=== PATIENT | female | born 1985 | race Caucasian/White ===

== ENCOUNTER 2024-01-28 12:55 | Inpatient (IN) ==
--- NOTE | 2024-01-28 13:19 | ED Triage Note ---
Date of Service January 28, 2024 Provider in Triage Author: Malia Bills History of Present Illness This patient was briefly evaluated while in triage. An abbreviated physical exam was performed. This patient is a 38-year-old Female who presents to the ED for evaluation of abdominal pain. She states that she was feeling some indigestion last night and then developed pain on the right side today. She has had vomiting. Denies fevers or urinary symptoms. Physical Exam GENERAL: Non-toxic and in no acute distress. HEENT: Pupils equal. No obvious scleral icterus. HEART: Regular rate and rhythm. LUNGS: Clear to auscultation. No accessory muscle use. ABDOMEN: Tenderness RUQ and RLQ. NEURO: Alert and oriented. Initial orders for labs and / or imaging were placed and patient was placed in the waiting area until a bed is available. Please see further documentation for the full ED course.
[2024-01-28] MEDS: SODIUM CHLORIDE 0.9% 1,000 ML IV ONE ×2 (13:49→15:44)
[2024-01-28] MEDS: ONDANSETRON INJ 2 MG/ML 2 ML VIAL IV STA ×2 (13:49→15:43)
[2024-01-28] MEDS: FAMOTIDINE 20MG IV PUSH 20 MG/5 ML SYR IV STA (13:49)
[2024-01-28 13:59] LABS: Basophils # (auto) 0.06 K/uL (0.00-0.20); Basophils % (auto) 0.3 %; Eosinophils # (auto) 0.02 K/uL (0.00-0.50); Eosinophils % (auto) 0.1 %; Hematocrit (blood only) 49.5 % (37.0-47.0); Hemoglobin 17.5 g/dl (12.0-16.0); Immature Granulocytes # (auto) 0.07 K/uL (0.01-0.20); Immature Granulocytes % (auto) 0.4 %; Lymphocytes # (auto) 1.27 K/uL (1.20-3.40); Lymphocytes % (auto) 6.5 %; Mean Corpuscular Hemoglobin 33.5 pg (25.0-34.0); Mean Corpuscular Hgb Conc 35.4 g/dL (32.0-36.0); Mean Corpuscular Volume 94.6 fL (80.0-100.0); Mean Platelet Volume 10.3 fL (9.4-12.4); Monocytes # (auto) 1.28 K/uL (0.11-0.59); Monocytes % (auto) 6.6 %; Neutrophils # (auto) 16.77 K/uL (1.40-6.50); Neutrophils % (auto) 86.1 %; Platelet Count 284 K/uL (130-400); RDW Coefficient of Variation 13.1 % (11.5-14.5); RDW Standard Deviation 45.5 fL (36.4-46.3); Red Blood Count 5.23 M/uL (4.20-5.40); White Blood Count 19.47 K/ul (4.8-10.8)
[2024-01-28 14:11] LABS: Pregnancy Test, Serum Negative (Negative)
[2024-01-28 14:28] LABS: Albumin Globulin Ratio 1.5 (0.9-2); Albumin Level 4.8 gm/dl (3.4-5.0); Bilirubin,Total 0.6 mg/dl (0.2-1.0); Creatinine Clr Calc Pharmacy 112.2 ml/min; Est GFR (African American) 113.4 ml/min; Est GFR (Non-African American) 97.8 ml/min; Globulin 3.1 gm/dl (2.5-4.0); Potassium 3.4 mmol/L (3.5-5.1); Total Protein 7.9 gm/dl (6.0-8.3)
--- NOTE | 2024-01-28 14:31 | Emergency Department Note ---
ED Provider Note History of Present Illness Chief Complaint: Abdominal Pain Stated Complaint: INDIGESTION, NOW PAIN ON RIGHT SIDE, VOMITING Time Seen by Provider: 01/28/24 14:30 Source: patient Mode of arrival: ambulatory Limitations: no limitations This patient is a 38-year-old female who presents to the emergency department for evaluation of abdominal pain. Patient reports that last night she developed some "indigestion." She states that today, she has developed abdominal pain which is primarily on the right side. Pain is worse with any movement. She has had vomiting as well. Denies changes in bowel movements or urinary symptoms. She denies any history of similar symptoms. She has not noticed any fevers at home. Home Medications Medication Instructions Recorded Confirmed Type desvenlafaxine succinate 100 mg 100 mg PO DAILY 01/28/24 01/28/24 History tablet,extended release 24 hr lorazepam 0.5 mg tablet 0.5 mg PO DAILY PRN Anxiety 01/28/24 01/28/24 History Allergies Allergy/AdvReac Type Severity Reaction Status Date / Time No Known Allergies Allergy Unverified 01/28/24 16:29 Past Med/Surg History Problem List (Updated 01/28/24 @ 18:29 by Malia Bills PA-C) Appendicitis with perforation (Acute) Acute appendicitis Macromastia Anxiety Surgical History Tubal ligation status Social History Smoking Status: Current every day smoker Tobacco Type: Cigarettes Second Hand Exposure: Yes; Tobacco Cessation Education Requested by Patient: No Hx Alcohol Use: Yes Alcohol type: beer Alcohol Intake Frequency Comment: Occasional Hx Substance Use: No Preferred Language: Hebrew Communication Ability: Effective Manager Of Maintenance Required: No Beliefs That Will Affect Care: None Current Living Situation: Spouse Current Living Situation Comment: and children Other Information That Helps Us Care for You: No Feels Safe at Home: Yes Safety Concerns: Feels Safe At This Time Physical Exam Vital Signs Vital Signs - 24 hr 01/28/24 13:18 01/28/24 15:41 01/28/24 15:41 Temperature 36.9 C Temperature Source Temporal Artery Scan Pulse Rate 120 H 99 H Pulse Rate [Apical] Pulse Rate [Right Finger] 98 H Pulse Rhythm Regular Pulse Rhythm [Apical] Pulse Rhythm [Right Finger] Regular Pulse Strength [Apical] Pulse Strength [Right Finger] Normal Respiratory Rate 16 23 17 Respiratory Effort / Characteristics Non-Labored Non-Labored Respiratory Depth Normal Normal Respiratory Pattern Regular Blood Pressure 145/80 H Blood Pressure [Left Arm] 118/87 Blood Pressure Mean 101 Blood Pressure Mean [Left Arm] 97 Blood Pressure Position [Left Arm] Lying Pulse Oximetry 96 98 98 Oxygen Delivery Method Room Air Room Air Room Air Oxygen Flow Rate Sepsis Recent Fever Within 48 Hours No Sepsis New/Unexplained Change in Mental Status N/A Sepsis Action Taken by Nursing No Action Required 01/28/24 15:56 01/28/24 16:16 01/28/24 16:33 Temperature Temperature Source Pulse Rate 109 H Pulse Rate [Apical] Pulse Rate [Right Finger] 104 H 109 H Pulse Rhythm Pulse Rhythm [Apical] Pulse Rhythm [Right Finger] Regular Regular Pulse Strength [Apical] Pulse Strength [Right Finger] Normal Normal Respiratory Rate 30 H 25 H Respiratory Effort / Characteristics Non-Labored Non-Labored Respiratory Depth Normal Normal Respiratory Pattern Regular Regular Blood Pressure Blood Pressure [Left Arm] 145/92 H 153/99 H Blood Pressure Mean Blood Pressure Mean [Left Arm] 109 117 Blood Pressure Position [Left Arm] Lying Lying Pulse Oximetry 95 97 Oxygen Delivery Method Room Air Room Air Oxygen Flow Rate Sepsis Recent Fever Within 48 Hours Sepsis New/Unexplained Change in Mental Status Sepsis Action Taken by Nursing 01/28/24 16:40 01/28/24 18:13 Temperature 37.9 C H 36.9 C Temperature Source Oral Temporal Artery Scan Pulse Rate Pulse Rate [Apical] 130 H Pulse Rate [Right Finger] 107 H Pulse Rhythm Pulse Rhythm [Apical] Regular Pulse Rhythm [Right Finger] Pulse Strength [Apical] Normal Pulse Strength [Right Finger] Respiratory Rate 20 18 Respiratory Effort / Characteristics Non-Labored Spontaneous Non-Labored Spontaneous Respiratory Depth Normal Normal Respiratory Pattern Regular Regular Blood Pressure Blood Pressure [Left Arm] 130/97 146/93 H Blood Pressure Mean Blood Pressure Mean [Left Arm] 108 110 Blood Pressure Position [Left Arm] Semi-fowlers Semi-fowlers Pulse Oximetry 96 95 Oxygen Delivery Method Room Air Oxymask Oxygen Flow Rate 10 Sepsis Recent Fever Within 48 Hours Sepsis New/Unexplained Change in Mental Status Sepsis Action Taken by Nursing VITALS: Vitals are noted on the nurse's note and reviewed by myself. GENERAL: This is a 38-year-old female, in no acute distress, well-developed well-nourished. SKIN: The skin was without rashes. EYES: Pupils equal round and reactive to light and accommodation. MOUTH: Mucous membranes moist. HEART: Regular rate and rhythm without murmurs gallops or rubs. LUNGS: Clear to auscultation bilaterally without wheezes, rales or rhonchi. ABDOMEN: Positive bowel sounds x 4. Soft, tender in the right lower quadrant with guarding. NEURO: Patient was alert and oriented to person place and time. Course Administered Medications Lactated Ringer's (Lr) 1,000 mls @ 125 mls/hr IV .Q8H AIDAN Stop: 02/27/24 19:27 Last Admin: 01/28/24 19:54 Dose: 125 mls/hr Documented By: KSC Discontinued Medications Acetaminophen (Acetaminophen 1000 Mg/100 Ml Iv) Confirm Administered Dose 1,000 mg IV .STK-MED ONE Stop: 01/28/24 18:24 Last Admin: 01/28/24 18:25 Dose: Not Given Documented By: WT Bupivacaine HCl/Epinephrine Bitart (Bupivacaine/Epinephrine 0.5% Mpf 1:200,000 30 Ml Vial) Confirm Administered Dose 30 ml .ROUTE .STK-MED ONE Stop: 01/28/24 16:33 Last Admin: 01/28/24 19:29 Dose: Not Given Documented By: KSC Fentanyl Citrate (Fentanyl Citrate Pf 100 Mcg/2 Ml Vial) 25 mcg IV Q5M PRN PRN Reason: PACU Use Only-Pain Stop: 01/29/24 00:31 Last Admin: 01/28/24 18:39 Dose: 25 mcg Documented By: Admin: 01/28/24 18:34 Dose: 25 mcg Documented By: Admin: 01/28/24 18:29 Dose: 25 mcg Documented By: Admin: 01/28/24 18:24 Dose: 25 mcg Documented By: WT Sodium Chloride (Nss) 1,000 mls @ 999 mls/hr IV .Q1H1M ONE Stop: 01/28/24 14:20 Last Infusion: 01/28/24 19:50 Dose: Infused Documented By: Admin: 01/28/24 13:49 Dose: 999 mls/hr Documented By: ELISABETH Famotidine (Pepcid 20mg Iv Push) 20 mg in 5 mls @ 2.5 mls/min IV NOW STA Stop: 01/28/24 13:21 Last Admin: 01/28/24 13:49 Dose: 2.5 mls/min Documented By: ELISABETH Piperacillin Sod/Tazobactam Sod (Zosyn) 4.5 gm in 100 mls @ 200 mls/hr IV NOW ONE Stop: 01/28/24 15:58 Last Infusion: 01/28/24 16:16 Dose: Infused Documented By: Admin: 01/28/24 15:43 Dose: 200 mls/hr Documented By: CHANTE Sodium Chloride (Nss) 1,000 mls @ 999 mls/hr IV .Q1H1M ONE Stop: 01/28/24 16:29 Last Infusion: 01/28/24 19:50 Dose: Infused [place] [facility] [place]: 01/28/24 15:44 Dose: 999 mls/hr Documented By: CHANTE Acetaminophen (Ofirmev) 1,000 mg in 100 mls @ 400 mls/hr IV NOW STA Stop: 01/28/24 18:35 Last Infusion: 01/28/24 19:29 Dose: Infused Documented By: Admin: 01/28/24 18:23 Dose: 400 mls/hr Documented By: JONATHAN Ioversol (Optiray 320 100ml) 93 ml IV ONCE ONE Stop: 01/28/24 15:02 Last Admin: 01/28/24 15:03 Dose: 93 ml Documented By: LEDA Morphine Sulfate (Morphine Sulfate 10 Mg/Ml Carp/Vial) 6 mg IV NOW STA Stop: 01/28/24 15:30 Last Admin: 01/28/24 15:43 Dose: 6 mg Documented By: CHANTE Ondansetron HCl (Ondansetron Inj 2 Mg/Ml 2 Ml Vial) 4 mg IV NOW STA Stop: 01/28/24 13:21 Last Admin: 01/28/24 13:49 Dose: 4 mg Documented By: ELISABETH Ondansetron HCl (Ondansetron Inj 2 Mg/Ml 2 Ml Vial) 4 mg IV NOW STA Stop: 01/28/24 15:33 Last Admin: 01/28/24 15:43 Dose: 4 mg Documented By: CHANTE Medical Decision Making Differential Diagnosis Appendicitis, ovarian cyst, ovarian torsion, ectopic , TOA, PID, infections, diverticulitis, UTI, obstruction, mesenteric ischemia, aortic pathology, inflammatory bowel disease, renal colic, PUD, pancreatitis, biliary pathology, hernia, volvulus, constipation, as well as other pathologies. Laboratory Data Attestation: I reviewed the patient's lab results. 01/28/24 13:35 01/28/24 13:35 Lab Results 01/28/24 01/28/24 Range/Units 13:35 15:48 WBC 19.47 H (4.8-10.8) K/ul RBC 5.23 (4.20-5.40) M/uL Hgb 17.5 H (12.0-16.0) g/dl Hct 49.5 H (37.0-47.0) % MCV 94.6 (80.0-100.0) fL MCH 33.5 (25.0-34.0) pg MCHC 35.4 (32.0-36.0) g/dL RDW Std Deviation 45.5 (36.4-46.3) fL RDW Coeff of Sondra 13.1 (11.5-14.5) % Plt Count 284 (130-400) K/uL MPV 10.3 (9.4-12.4) fL Immature Gran % (Auto) 0.4 % Neut % (Auto) 86.1 % Lymph % (Auto) 6.5 % Hand % (Auto) 6.6 % Eos % (Auto) 0.1 % Baso % (Auto) 0.3 % Neut # (Auto) 16.77 H (1.40-6.50) K/uL Lymph # (Auto) 1.27 (1.20-3.40) K/uL Hand # (Auto) 1.28 H (0.11-0.59) K/uL Eos # (Auto) 0.02 (0.00-0.50) K/uL Baso # (Auto) 0.06 (0.00-0.20) K/uL Immature Gran # (Auto) 0.07 (0.01-0.20) K/uL Sodium 140 (136-145) mmol/L Potassium 3.4 L (3.5-5.1) mmol/L Chloride 104 (98-107) mmol/L Carbon Dioxide 26 (21-32) mmol/L Anion Gap 10 (3-11) BUN 7 (6-23) mg/dl Creatinine 0.78 (0.6-1.2) mg/dl Est Cr Clr Drug Dosing 112.2 ml/min Est GFR ( Amer) 113.4 ml/min Est GFR (Non-Af Amer) 97.8 ml/min BUN/Creatinine Ratio 9.0 L (10-20) Glucose 123 H (70-99(Fasting)) mg/dl Lactate 1.3 (0.4-2.0) mmol/L Calcium 10.0 (8.6-10.3) mg/dl Total Bilirubin 0.6 (0.2-1.0) mg/dl AST 12 L (13-39) U/L ALT 24 (7-52) U/L Alkaline Phosphatase 96 (34-104) U/L Total Protein 7.9 (6.0-8.3) gm/dl Albumin 4.8 (3.4-5.0) gm/dl Globulin 3.1 (2.5-4.0) gm/dl Albumin/Globulin Ratio 1.5 (0.9-2) Lipase 12 (11-82) U/L HCG, Qual Negative (Negative) Imaging Data Attestation: I personally reviewed and interpreted this imaging study as follows: Radiologist's Impression: Abdomen/Pelvis CT 01/28/24 13:21 CT abd pelvis IV con only CLINICAL HISTORY: Right sided abd pain TECHNIQUE: Helical axial images of the abdomen and pelvis were obtained and displayed. Automated dose lowering techniques and/or adjustment according to patient size were utilized for this exam. This exam was performed with intravenous contrast. CT DOSE: 1410.63 mGy.cm COMPARISON: None available at the time of this dictation. FINDINGS: Lower chest: No acute abnormality. Liver: Unremarkable. No focal lesions are seen. Gallbladder and biliary tree: No calcified gallstones. Normal caliber wall. No intra- or extrahepatic biliary ductal dilation. Pancreas: Unremarkable, no focal lesions. Spleen: Unremarkable. Adrenals: Unremarkable. Kidneys and ureters: Unremarkable. Bladder: Diffuse homogeneous wall thickening is seen. Reproductive organs: Unremarkable. Bowel: The appendix is enlarged measuring up to 12 mm. There is extraluminal gas concerning for perforation. No well-defined fluid collection is seen despite surrounding peritoneal stranding. Lymph nodes Retroperitoneal: Unremarkable. Pelvic: Unremarkable. Mesenteric: Unremarkable. Peritoneum: Periappendiceal fat stranding and pneumoperitoneum are seen concerning for perforation. No drainable fluid collection. Vessels: Unremarkable. Abdominal wall: Unremarkable. Bones: Unremarkable. IMPRESSION: Findings concerning for perforated appendicitis. No abscess is seen. ACT 112: Negative or not required by law. Electronically signed by: Toi Martinez M.D. 01/28/2024 3:26 PM MDM Narrative This patient is a 38-year-old female who presents to the emergency department for evaluation of right-sided abdominal pain. Labs revealed a white count of 19,000. CT was performed and patient was found to have a perforated appendicitis. Lactate was not elevated. She was treated with IV fluids, Zosyn, morphine and Zofran. General surgery was consulted and did evaluate the patient. Patient will be admitted under general surgery for further care. Impression Appendicitis with perforation Discharge Plan Visit Data Chief Complaint: Abdominal Pain Stated Complaint: INDIGESTION, NOW PAIN ON RIGHT SIDE, VOMITING ED Provider: Dalton Quezada ED Midlevel Provider: Malia Bills Discharge Problem: Appendicitis with perforation Discharge Instructions Interventions: ED Discharge Assessment Last Done: 01/28/24 16:41
[2024-01-28] MEDS: OPTIRAY 320 100ml IV ONE (15:03)
--- NOTE | 2024-01-28 15:28 | CT Scan Report ---
CT abd pelvis IV con only CLINICAL HISTORY: Right sided abd pain TECHNIQUE: Helical axial images of the abdomen and pelvis were obtained and displayed. Automated dose lowering techniques and/or adjustment according to patient size were utilized for this exam. This e xam was performed with intravenous contrast. CT DOSE: 1410.63 mGy.cm COMPARISON: None available at the time of this dictation. FINDINGS: Lower chest: No acute abnormality. Liver: Unremarkable. No focal lesions are seen. Gallbladder and biliary tree: No calcified gallstones. Normal caliber wall. No intra- or extrahepatic biliary ductal dilation. Pancreas: Unremarkable, no focal lesions. Spleen: Unremarkable. Adrenals: Unremarkable. Kidneys and ureters: Unremarkable. Bladder: Diffuse homogeneous wall thickening is seen. Reproductive organs: Unremarkable. Bowel: The appendix is enlarged measuring up to 12 mm. There is extraluminal gas concerning for perfo ration. No well-defined fluid collection is seen despite surrounding peritoneal stranding. Lymph nodes Retroperitoneal: Unremarkable. Pelvic: Unremarkable. Mesenteric: Unremarkable. Peritoneum: Periappendiceal fat stranding and pneumoperitoneum are seen concerning for perforation. N o drainable fluid collection. Vessels: Unremarkable. Abdominal wall: Unremarkable. Bones: Unremarkable. IMPRESSION: Findings concerning for perforated appendicitis. No abscess is seen. ACT 112: Negative or not required by law. Electronically signed by: Toi Martinez M.D. 01/28/2024 3:26 PM
[2024-01-28] MEDS: PIPERACILLIN/TAZOBACTAM 4.5 GM/100 ML BAG IV ONE (15:43)
[2024-01-28] MEDS: MoRPHine SULFATE 10 MG/ML CARP/VIAL IV STA (15:43)
[2024-01-28] MEDS ORDERED: ePHEDrine sulfate 50 MG/ML AMP IV PRN (16:31)
[2024-01-28] MEDS ORDERED: ONDANSETRON INJ 2 MG/ML 2 ML VIAL IV PRN (16:31)
[2024-01-28] MEDS ORDERED: ATROPINE SULFATE 0.1 MG/ML 10ML SYR IV PRN (16:31)
--- NOTE | 2024-01-28 16:31 | Anesthesiology Consultation ---
Date of Service January 28, 2024 Assessment & Plan Chart Review Chart Review: Patient NOT seen in Pre Admission Testing emergent procedure Consults Requested none History Surgery Operation Date: 01/28/24 12:30 Proposed Procedures p Laparoscopic Appendectomy - Darin Reyes MD Height/Weight Height: 5 ft 4 in Weight: 96.1 kg Allergies Allergy/AdvReac Type Severity Reaction Status Date / Time No Known Allergies Allergy Unverified 01/28/24 16:29 Medications Home Medications Medication Instructions Recorded Confirmed Last Taken desvenlafaxine succinate 100 mg 100 mg PO 01/28/24 01/28/24 tablet,extended release 24 hr 0900 lorazepam 0.5 mg tablet 0.5 mg 01/28/24 01/28/24 0.5 Past Surgical History Surgical History Tubal ligation status Social History Smoking Status: Current every day smoker Hx Alcohol Use: Yes alcohol intake frequency: other Physical Exam Vital Signs Last Vital Signs Temp 98.4 F 01/28/24 13:18 Pulse 104 H 01/28/24 16:16 Resp 30 H 01/28/24 16:16 BP 145/92 H 01/28/24 16:16 Pulse Ox 95 01/28/24 16:16 O2 Del Method Room Air 01/28/24 16:16 Testing Laboratory Results 01/28/24 13:35 01/28/24 13:35
[2024-01-28] MEDS ORDERED: SUGAMMADEX SODIUM 200 MG/2 ML VIAL IV ONE ×2 (16:32→17:33)
[2024-01-28] MEDS ORDERED: fentaNYL citrate PF 100 MCG/2 ML VIAL ONE ×2 (16:32→17:40)
[2024-01-28] MEDS ORDERED: LIDOCAINE 2% 20 MG/ML 5 ML SYR IV ONE (16:32)
[2024-01-28] MEDS ORDERED: ONDANSETRON INJ 2 MG/ML 2 ML VIAL ONE (16:32)
[2024-01-28] MEDS ORDERED: ROCURONIUM BROMIDE 10 MG/ML 5 ML VIAL IV ONE (16:32)
[2024-01-28] MEDS ORDERED: PROPOFOL IV EMULSION 10 MG/ML 20 ML VIAL IV ONE (16:32)
[2024-01-28] MEDS ORDERED: MIDAZOLAM HCL 1 MG/ML 2ML VIAL ONE (16:32)
--- NOTE | 2024-01-28 16:34 | History & Physical Report ---
Date of Service January 28, 2024 Assessment & Plan (1) Acute appendicitis: Plan: 38 year old female with nausea, vomiting, and right lower abdominal pain that started last evening around [address] scan showing acute appendicitis with concern for perforation however no abscess/fluid collection identified. Leukocytosis of 19, hemodynamically stable, hemoglobin elevated, likely dehydrated in setting of GI loses due to vomiting. Abdomen soft, nondistended, tender in RLQ with localized peritonitis. Plan: Discussed imaging and lab findings consistent with acute appendicitis with perforation however no abscess collection identified. Discussed proceeding with laparoscopic appendectomy as likely early perforation. Discussed procedure and risks and expected recovery. may be in hospital for a few days pending intraop findings and discussed possibility of drain placement. Will obtain informed consent preop with Dr. Reyes. Keep NPO Continue Zosyn Will proceed to OR today for laparoscopic appendectomy. History of Present Illness Chief Complaint: abdominal pain Primary Care Provider: Marcos Olmos is a 38 yo female with history of anxiety who presents to emergency department with increasing abdominal pain now mostly in right lower abdomen with associated chills and vomiting. States she was not feeling well and then had multiple episodes of bilious vomiting and then pain started last evening around 7 pm. Was more upper right abdomen and now mostly in right lower abdomen. No fevers. No changes in bowel habits. History of tubal ligation and ablation. No blood thinning agents. Allergies Allergy/AdvReac Type Severity Reaction Status Date / Time No Known Allergies Allergy Unverified 01/28/24 16:29 Home Medications Medication Instructions Recorded Confirmed Type desvenlafaxine succinate 100 mg 100 mg PO 01/28/24 History tablet,extended release 24 hr lorazepam 0.5 mg tablet 0.5 mg 01/28/24 History Past Med/Surg History Problem List (Updated 01/28/24 @ 16:31 by Anusha Boyd PA-C) Acute appendicitis Macromastia Anxiety Surgical History (Updated 01/28/24 @ 16:28 by Anusha Boyd PA-C) Tubal ligation status Social History (System 03/18/18 @ 08:46 by Brenda Good) Smoking Status: Current every day smoker Hx Alcohol Use: Yes Alcohol Intake Frequency Comment: Occasional Preferred Language: Mauritanian Current Living Situation: Family Feels Safe at Home: Yes Review of Systems Review of Systems: All systems reviewed & are unremarkable except as noted in HPI & below Physical Exam Constitutional: + obese, cooperative and comfortable; no acute distress and not ill appearing Respiratory: normal respiratory effort, lungs clear to auscultation Cardiovascular: RRR, no murmur, no edema Gastrointestinal (Abdomen): Inspection/Auscultation: abdomen normal to inspection; abdomen not distended Percussion/Palpation: + abdomen tender (RUQ and RLQ , positive Mcburneys point) and abdomen soft; no guarding, abdomen not rigid and abdomen not firm Skin: no rashes, warm and dry Psychiatric: Orientation: alert and oriented x 3 Results & Data Results & Data Vital Signs (Past 12 Hours) Vital Signs Temp Pulse Pulse Resp BP BP Pulse Ox 01/28/24 16:16 104 H 30 H 145/92 H 95 01/28/24 15:56 109 H 01/28/24 15:41 99 H 17 98 01/28/24 15:41 98 H 23 118/87 98 01/28/24 13:18 36.9 C 120 H 16 145/80 H 96 O2 Del Method 01/28/24 16:16 Room Air 01/28/24 15:56 01/28/24 15:41 Room Air 01/28/24 15:41 Room Air 01/28/24 13:18 Room Air Laboratory Results 01/28/24 01/28/24 Range/Units 15:48 13:35 WBC 19.47 H (4.8-10.8) K/ul RBC 5.23 (4.20-5.40) M/uL Hgb 17.5 H (12.0-16.0) g/dl Hct 49.5 H (37.0-47.0) % MCV 94.6 (80.0-100.0) fL MCH 33.5 (25.0-34.0) pg MCHC 35.4 (32.0-36.0) g/dL RDW Std Deviation 45.5 (36.4-46.3) fL RDW Coeff of Sondra 13.1 (11.5-14.5) % Plt Count 284 (130-400) K/uL MPV 10.3 (9.4-12.4) fL Immature Gran % (Auto) 0.4 % Neut % (Auto) 86.1 % Lymph % (Auto) 6.5 % [place] % (Auto) 6.6 % Eos % (Auto) 0.1 % Baso % (Auto) 0.3 % Neut # (Auto) 16.77 H (1.40-6.50) K/uL Lymph # (Auto) 1.27 (1.20-3.40) K/uL [place] # (Auto) 1.28 H (0.11-0.59) K/uL Eos # (Auto) 0.02 (0.00-0.50) K/uL Baso # (Auto) 0.06 (0.00-0.20) K/uL Immature Gran # (Auto) 0.07 (0.01-0.20) K/uL Sodium 140 (136-145) mmol/L Potassium 3.4 L (3.5-5.1) mmol/L Chloride 104 (98-107) mmol/L Carbon Dioxide 26 (21-32) mmol/L Anion Gap 10 (3-11) BUN 7 (6-23) mg/dl Creatinine 0.78 (0.6-1.2) mg/dl Est Cr Clr Drug Dosing 112.2 ml/min Est GFR ( Amer) 113.4 ml/min Est GFR (Non-Af Amer) 97.8 ml/min BUN/Creatinine Ratio 9.0 L (10-20) Glucose 123 H (70-99(Fasting)) mg/dl Lactate 1.3 (0.4-2.0) mmol/L Calcium 10.0 (8.6-10.3) mg/dl Total Bilirubin 0.6 (0.2-1.0) mg/dl AST 12 L (13-39) U/L ALT 24 (7-52) U/L Alkaline Phosphatase 96 (34-104) U/L Total Protein 7.9 (6.0-8.3) gm/dl Albumin 4.8 (3.4-5.0) gm/dl Globulin 3.1 (2.5-4.0) gm/dl Albumin/Globulin Ratio 1.5 (0.9-2) Lipase 12 (11-82) U/L HCG, Qual Negative (Negative) Diagnostic Findings CT abd pelvis IV con only CLINICAL HISTORY: Right sided abd pain TECHNIQUE: Helical axial images of the abdomen and pelvis were obtained and displayed. Automated dose lowering techniques and/or adjustment according to patient size were utilized for this exam. This exam was performed with intravenous contrast. CT DOSE: 1410.63 mGy.cm COMPARISON: None available at the time of this dictation. FINDINGS: Lower chest: No acute abnormality. Liver: Unremarkable. No focal lesions are seen. Gallbladder and biliary tree: No calcified gallstones. Normal caliber wall. No intra- or extrahepatic biliary ductal dilation. Pancreas: Unremarkable, no focal lesions. Spleen: Unremarkable. Adrenals: Unremarkable. Kidneys and ureters: Unremarkable. Bladder: Diffuse homogeneous wall thickening is seen. Reproductive organs: Unremarkable. Bowel: The appendix is enlarged measuring up to 12 mm. There is extraluminal gas concerning for perforation. No well-defined fluid collection is seen despite surrounding peritoneal stranding. Lymph nodes Retroperitoneal: Unremarkable. Pelvic: Unremarkable. Mesenteric: Unremarkable. Peritoneum: Periappendiceal fat stranding and pneumoperitoneum are seen concerning for perforation. No drainable fluid collection. Vessels: Unremarkable. Abdominal wall: Unremarkable. Bones: Unremarkable. IMPRESSION: Findings concerning for perforated appendicitis. No abscess is seen. Code Status & VTE Plan VTE Prophylaxis Plan VTE Prophylaxis will be ordered: Yes
[2024-01-28] MEDS ORDERED: diphenhydrAMINE 50 MG/ML VIAL ONE (17:27)
[2024-01-28] MEDS ORDERED: GLYCOPYRROLATE 0.2 MG/ML VIAL ONE (17:27)
--- NOTE | 2024-01-28 18:11 | Operative Report ---
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 Specimens Appendix to pathology Drains Andrei drain in the right lower quadrant Anesthesia Type General Complications None Indications This is a 38-year-old female who was seen in the ED after workup pain. CT scan showed a likely perforated appendicitis. She had elevated white count peritoneal signs on exam. Explained procedure in detail. We went over the risks in detail. She wishes to proceed. Description of Procedure The patient was taken to the OR and underwent excellent general anesthesia. Their abdomen was prepped and draped in normal sterile fashion. A transverse supraumbilical incision was made, towel clamps were used to create tension on the abdominal wall as a Varess needle was inserted gently into the peritoneal cavity. Good pneumoperitoneum was achieved to about 15 mmHg pressure. Once this was done, a visualized 11 port was placed in the supraumbilical position. A 12 mm left lower quadrant port , a 5mm suprapubic port , and a 5mm right upper quadrant port were placed in normal fashion. Patient was then placed in head down and rolled to the left. A good diagnostic lap was performed. They had obvious acute appendicitis with gangrenous changes. The cecum was grasped with an atraumatic grasper. A grasper was then was then used to grasp the tip of the appendix, once this was mobilized some small stool balls were seen adjacent to a localized perforation in the appendix.. The mesoappendix was splayed open and a harmonic scalpel was used to take down the mesoappendix. The base of the appendix was identified and an Endo DEL stapler was used to transect the appendix at its base. A Endobag was then inserted through the left lower quadrant port and the appendix was placed into the bag, along with the stool b alls. The bag was removed through the left lower quadrant port. The appendix was then sent for pathologic evaluation. Pneumoperitoneum was re-established and the 12 mm port was replaced. 2L of Saline was then used to irrigate the abdomen. There was no active bleeding nor any other abnormalities noted in the abdomen. Patient was then placed back in neutral position, a drain was placed in the RLQ and secured with a nylon suture. The ports were removed and the pneumoperitoneum decompressed. The 12mm port fascia was then closed using a 0 Vicryl. The skin was then anesthetized with 0.5% Marcaine with epinephrine local. Interrupted Vicryl is used to close the skin. Dermabond was used to reinforce the incisions. Sterile dressings were applied. The patient tolerated procedure without complications was sent to the postop recovery period of observation. They will be sent to the floor for the rest of their care. I attest to the content of the Intraoperative Record and any orders documented therein. Any exceptions are noted below.
[2024-01-28] MEDS: ACETAMINOPHEN 1,000 MG/100 ML VIAL IV STA (18:23)
[2024-01-28] MEDS: fentaNYL citrate PF 100 MCG/2 ML VIAL IV PRN (18:24)
[2024-01-28] MEDS: ACETAMINOPHEN 1000 MG/100 ML IV IV ONE (18:25)
[2024-01-28] MEDS ORDERED: MoRPHine SULFATE 2 MG/ML CARP IV PRN (19:28)
[2024-01-28] MEDS ORDERED: MoRPHine SULFATE 4 MG/ML 1 ML CARP\\VIAL IV PRN (19:28)
[2024-01-28] MEDS ORDERED: PROMETHAZINE 25 MG/51 ML BAG IV PRN (19:28)
[2024-01-28] MEDS ORDERED: oxyCODONE/ACETAMINOPHEN 5mg/325mg TAB PO PRN (19:28)
[2024-01-28] MEDS: BUPIVACAINE/EPINEPHRINE 0.5% MPF 1:200,000 30 ML VIAL ONE (19:29)
[2024-01-28] MEDS: LACTATED RINGER'S 1,000 ML IV SCH (19:54)
[2024-01-28 20:07] LABS: Appearance Urine Clear (Clear); Bilirubin Urine Negative (Negative); Blood Urine Negative (Negative); Color Urine Yellow; Glucose Urine UA Negative (Negative); Ketones Urine Negative (Negative); Leukocyte Esterase Urine Negative (Negative); Nitrite Urine Negative (Negative); Protein Urine Negative (Negative); Specific Gravity Urine > 1.045 (1.000-1.030); Urobilinogen Urine Negative (Negative); pH Urine 6.5 (4.5-7.5)
[2024-01-28] MEDS: PIPERACILLIN/TAZOBACTAM 4.5 GM/100 ML BAG IV SCH (20:54)
[2024-01-28] MEDS: oxyCODONE/ACETAMINOPHEN 5mg/325mg TAB PO PRN (21:03)
[2024-01-29] MEDS: IBUPROFEN 600 MG TAB PO PRN (03:42)
[2024-01-29 07:06] LABS: Basophils # (auto) 0.04 K/uL (0.00-0.20); Basophils % (auto) 0.2 %; Eosinophils # (auto) 0.01 K/uL (0.00-0.50); Eosinophils % (auto) 0.1 %; Hematocrit (blood only) 40.4 % (37.0-47.0); Hemoglobin 14.2 g/dl (12.0-16.0); Immature Granulocytes # (auto) 0.15 K/uL (0.01-0.20); Immature Granulocytes % (auto) 0.8 %; Lymphocytes # (auto) 1.75 K/uL (1.20-3.40); Lymphocytes % (auto) 9.6 %; Mean Corpuscular Hemoglobin 33.7 pg (25.0-34.0); Mean Corpuscular Hgb Conc 35.1 g/dL (32.0-36.0); Mean Platelet Volume 10.5 fL (9.4-12.4); Monocytes # (auto) 1.07 K/uL (0.11-0.59); Monocytes % (auto) 5.9 %; Neutrophils # (auto) 15.12 K/uL (1.40-6.50); Neutrophils % (auto) 83.4 %; Platelet Count 208 K/uL (130-400); RDW Coefficient of Variation 13.4 % (11.5-14.5); RDW Standard Deviation 47.3 fL (36.4-46.3); Red Blood Count 4.21 M/uL (4.20-5.40); White Blood Count 18.14 K/ul (4.8-10.8)
[2024-01-29] MEDS: DESVENLAFAXINE SUCCINATE ER 100 MG TABLET PO SCH (09:40)
--- NOTE | 2024-01-29 10:02 | Surgery Progress Note ---
Date of Service January 29, 2024 Assessment & Plan (1) Acute appendicitis: Plan: POD # 1 s/p lap appy , perforated appendix tmax 38.0 vss pain controlled Plan: continue pain management IV fluids and IV abx sonu drain to bulb suction advance to fulls ambulate scds incentive Dr. Reyes has seen and examined pt, agrees with above Admission and Anticipated Discharge Date Admission Date: January 28, 2024 Subjective feeling better, pain controlled with Percocet no n,v tolerated clears urinating without difficulty no cp, shortness of breath Physical Exam Constitutional: WD/WN, vitals as above + obese, cooperative and comfortable; no acute distress and not ill appearing Respiratory: normal respiratory effort; no respiratory distress Gastrointestinal (Abdomen): Inspection/Auscultation: abdomen normal to inspection, + abdomen distended (mild), + abdominal surgical incision (c/d/i with dermabond) and + abdominal surgical drain present (serosangunieous) Percussion/Palpation: + abdomen tender (at incision sites appropriate postop) and abdomen soft; no guarding, abdomen not rigid and abdomen not firm Skin: no rashes, warm and dry Psychiatric: A+Ox3, euthymic affect Results & Data Vital Signs (Past 12 Hours) Vital Signs Temp Pulse Resp BP Pulse Ox O2 Del Method O2 Flow Rate 01/29/24 07:41 36.9 C 93 H 11 L 108/73 94 Nasal Cannula 01/29/24 06:08 38.0 C H 94 H 16 120/80 96 Nasal Cannula 2 01/29/24 04:44 37.6 C H 01/29/24 03:54 103 H 96 Nasal Cannula 2 01/29/24 03:38 37.7 C H 109 H 20 131/83 90 Room Air 01/29/24 01:04 36.8 C 96 H 01/28/24 23:14 37.5 C 118 H 20 123/84 93 Room Air Laboratory Results 01/29/24 01/28/24 01/28/24 Range/Units 06:31 19:56 15:48 WBC 18.14 H (4.8-10.8) K/ul RBC 4.21 (4.20-5.40) M/uL Hgb 14.2 D (12.0-16.0) g/dl Hct 40.4 (37.0-47.0) % MCV 96.0 (80.0-100.0) fL MCH 33.7 (25.0-34.0) pg MCHC 35.1 (32.0-36.0) g/dL RDW Std Deviation 47.3 H (36.4-46.3) fL RDW Coeff of Sondra 13.4 (11.5-14.5) % Plt Count 208 (130-400) K/uL MPV 10.5 (9.4-12.4) fL Immature Gran % (Auto) 0.8 % Neut % (Auto) 83.4 % Lymph % (Auto) 9.6 % [place] % (Auto) 5.9 % Eos % (Auto) 0.1 % Baso % (Auto) 0.2 % Neut # (Auto) 15.12 H (1.40-6.50) K/uL Lymph # (Auto) 1.75 (1.20-3.40) K/uL [place] # (Auto) 1.07 H (0.11-0.59) K/uL Eos # (Auto) 0.01 (0.00-0.50) K/uL Baso # (Auto) 0.04 (0.00-0.20) K/uL Immature Gran # (Auto) 0.15 (0.01-0.20) K/uL Sodium (136-145) mmol/L Potassium (3.5-5.1) mmol/L Chloride (98-107) mmol/L Carbon Dioxide (21-32) mmol/L Anion Gap (3-11) BUN (6-23) mg/dl Creatinine (0.6-1.2) mg/dl Est Cr Clr Drug Dosing ml/min Est GFR ( Amer) ml/min Est GFR (Non-Af Amer) ml/min BUN/Creatinine Ratio (10-20) Glucose (70-99(Fasting)) mg/dl Lactate 1.3 (0.4-2.0) mmol/L Calcium (8.6-10.3) mg/dl Total Bilirubin (0.2-1.0) mg/dl AST (13-39) U/L ALT (7-52) U/L Alkaline Phosphatase (34-104) U/L Total Protein (6.0-8.3) gm/dl Albumin (3.4-5.0) gm/dl Globulin (2.5-4.0) gm/dl Albumin/Globulin Ratio (0.9-2) Lipase (11-82) U/L HCG, Qual (Negative) Urine Color Yellow Urine Appearance Clear (Clear) Urine pH 6.5 (4.5-7.5) Ur Specific [place] > 1.045 H (1.000-1.030) Urine Protein Negative (Negative) Urine Glucose (UA) Negative (Negative) Urine Ketones Negative (Negative) Urine Blood Negative (Negative) Urine Nitrite Negative (Negative) Urine Bilirubin Negative (Negative) Urine Urobilinogen Negative (Negative) Ur Leukocyte Esterase Negative (Negative) 01/28/24 Range/Units 13:35 WBC 19.47 H (4.8-10.8) K/ul RBC 5.23 (4.20-5.40) M/uL Hgb 17.5 H (12.0-16.0) g/dl Hct 49.5 H (37.0-47.0) % MCV 94.6 (80.0-100.0) fL MCH 33.5 (25.0-34.0) pg MCHC 35.4 (32.0-36.0) g/dL RDW Std Deviation 45.5 (36.4-46.3) fL RDW Coeff of Sondra 13.1 (11.5-14.5) % Plt Count 284 (130-400) K/uL MPV 10.3 (9.4-12.4) fL Immature Gran % (Auto) 0.4 % Neut % (Auto) 86.1 % Lymph % (Auto) 6.5 % [place] % (Auto) 6.6 % Eos % (Auto) 0.1 % Baso % (Auto) 0.3 % Neut # (Auto) 16.77 H (1.40-6.50) K/uL Lymph # (Auto) 1.27 (1.20-3.40) K/uL [place] # (Auto) 1.28 H (0.11-0.59) K/uL Eos # (Auto) 0.02 (0.00-0.50) K/uL Baso # (Auto) 0.06 (0.00-0.20) K/uL Immature Gran # (Auto) 0.07 (0.01-0.20) K/uL Sodium 140 (136-145) mmol/L Potassium 3.4 L (3.5-5.1) mmol/L Chloride 104 (98-107) mmol/L Carbon Dioxide 26 (21-32) mmol/L Anion Gap 10 (3-11) BUN 7 (6-23) mg/dl Creatinine 0.78 (0.6-1.2) mg/dl Est Cr Clr Drug Dosing 112.2 ml/min Est GFR ( Amer) 113.4 ml/min Est GFR (Non-Af Amer) 97.8 ml/min BUN/Creatinine Ratio 9.0 L (10-20) Glucose 123 H (70-99(Fasting)) mg/dl Lactate (0.4-2.0) mmol/L Calcium 10.0 (8.6-10.3) mg/dl Total Bilirubin 0.6 (0.2-1.0) mg/dl AST 12 L (13-39) U/L ALT 24 (7-52) U/L Alkaline Phosphatase 96 (34-104) U/L Total Protein 7.9 (6.0-8.3) gm/dl Albumin 4.8 (3.4-5.0) gm/dl Globulin 3.1 (2.5-4.0) gm/dl Albumin/Globulin Ratio 1.5 (0.9-2) Lipase 12 (11-82) U/L HCG, Qual Negative (Negative) Urine Color Urine Appearance (Clear) Urine pH (4.5-7.5) Ur Specific [place] (1.000-1.030) Urine Protein (Negative) Urine Glucose (UA) (Negative) Urine Ketones (Negative) Urine Blood (Negative) Urine Nitrite (Negative) Urine Bilirubin (Negative) Urine Urobilinogen (Negative) Ur Leukocyte Esterase (Negative)
[2024-01-29] MEDS: PANTOprazole 40 MG TAB PO SCH (11:31)
[2024-01-29] MEDS: ACETAMINOPHEN 325 MG TAB PO PRN (20:11)
[2024-01-30] MEDS: ONDANSETRON INJ 2 MG/ML 2 ML VIAL IV PRN (01:11)
[2024-01-30 10:08] LABS: Basophils # (auto) 0.05 K/uL (0.00-0.20); Basophils % (auto) 0.4 %; Eosinophils # (auto) 0.15 K/uL (0.00-0.50); Eosinophils % (auto) 1.2 %; Hematocrit (blood only) 39.7 % (37.0-47.0); Hemoglobin 13.2 g/dl (12.0-16.0); Immature Granulocytes # (auto) 0.08 K/uL (0.01-0.20); Immature Granulocytes % (auto) 0.6 %; Lymphocytes # (auto) 1.49 K/uL (1.20-3.40); Lymphocytes % (auto) 11.8 %; Mean Corpuscular Hemoglobin 32.9 pg (25.0-34.0); Mean Corpuscular Hgb Conc 33.2 g/dL (32.0-36.0); Mean Platelet Volume 10.3 fL (9.4-12.4); Monocytes # (auto) 0.57 K/uL (0.11-0.59); Monocytes % (auto) 4.5 %; Neutrophils # (auto) 10.31 K/uL (1.40-6.50); Neutrophils % (auto) 81.5 %; Platelet Count 177 K/uL (130-400); RDW Coefficient of Variation 13.6 % (11.5-14.5); Red Blood Count 4.01 M/uL (4.20-5.40); White Blood Count 12.65 K/ul (4.8-10.8)
--- NOTE | 2024-01-30 10:42 | Surgery Progress Note ---
Date of Service January 30, 2024 Assessment & Plan (1) Appendicitis with perforation: Plan: con't clears IV abx ambulate slow progress Admission and Anticipated Discharge Date Admission Date: January 28, 2024 Subjective required O2 overnight pain controlled MATTHIAS serosanguinous afebrile Review of Systems Constitutional: no fever, no chills and no anorexia Respiratory: no cough Cardiovascular: no chest pain Gastrointestinal: + abdominal pain; no nausea, no vomiting and no change in bowel habits Genitourinary: no dysuria Neurologic: no localized weakness and no generalized weakness Physical Exam Constitutional: WD/WN, vitals as above Respiratory: normal respiratory effort, lungs clear to auscultation Cardiovascular: RRR, no murmur, no edema Gastrointestinal (Abdomen): Inspection/Auscultation: abdomen normal to inspection, normal bowel sounds and + abdominal surgical incision; abdomen not distended Percussion/Palpation: + abdomen tender and abdomen soft; no guarding and abdomen not rigid Musculoskeletal: Head/Neck/Chest: normocephalic and head atraumatic Results & Data Vital Signs (Past 12 Hours) Vital Signs Temp Pulse Pulse Resp BP Pulse Ox O2 Del Method 01/30/24 07:56 101 H 92 Nasal Cannula 01/30/24 07:47 36.7 C 101 H 20 125/83 86 L Room Air 01/30/24 05:00 37.1 C 01/30/24 00:59 36.7 C 98 H 16 114/72 92 Room Air 01/29/24 22:59 Nasal Cannula O2 Flow Rate 01/30/24 07:56 2 01/30/24 07:47 01/30/24 05:00 01/30/24 00:59 01/29/24 22:59 2
[2024-01-30] MEDS: metroNIDAZOLE 500 MG/100 ML BAG IV SCH (12:56)
[2024-01-30] MEDS: cefTRIAXone SODIUM 2,000 MG/50 ML BAG IV SCH (12:56)
[2024-01-31 08:09] LABS: Basophils # (auto) 0.03 K/uL (0.00-0.20); Basophils % (auto) 0.3 %; Eosinophils # (auto) 0.23 K/uL (0.00-0.50); Eosinophils % (auto) 2.1 %; Hematocrit (blood only) 37.3 % (37.0-47.0); Immature Granulocytes # (auto) 0.04 K/uL (0.01-0.20); Immature Granulocytes % (auto) 0.4 %; Lymphocytes # (auto) 1.31 K/uL (1.20-3.40); Lymphocytes % (auto) 12.1 %; Mean Corpuscular Hemoglobin 33.7 pg (25.0-34.0); Mean Corpuscular Hgb Conc 34.9 g/dL (32.0-36.0); Mean Corpuscular Volume 96.6 fL (80.0-100.0); Mean Platelet Volume 10.8 fL (9.4-12.4); Monocytes # (auto) 0.86 K/uL (0.11-0.59); Monocytes % (auto) 7.9 %; Neutrophils # (auto) 8.39 K/uL (1.40-6.50); Neutrophils % (auto) 77.2 %; Platelet Count 188 K/uL (130-400); RDW Coefficient of Variation 13.5 % (11.5-14.5); RDW Standard Deviation 48.5 fL (36.4-46.3); Red Blood Count 3.86 M/uL (4.20-5.40); White Blood Count 10.86 K/ul (4.8-10.8)
--- NOTE | 2024-01-31 09:08 | Surgery Progress Note ---
Date of Service January 31, 2024 Assessment & Plan (1) Appendicitis with perforation: Plan: POD # 3 lap appy perforated appendicitis -afebrile this am - vss - postop pain better controlled - leukocytosis resolved - no SOB, O2 sats improved Plan: advance to regular diet continue IV abx will dc IV fluids since advancing diet continue sonu drain pain management continue to use incentive spirometer, scds and ambulate hopeful discharge tomorrow Dr. Reyes has seen and examined pt, agrees with above. Admission and Anticipated Discharge Date Admission Date: January 28, 2024 Subjective feeling better this am pain better controlled , binder helped with ambulating using incentive, able to take deeper breaths no n,v tolerating fulls, hungry wants something more mild fever last night took Ibuprofen no chest pain or sob Physical Exam Constitutional: WD/WN, vitals as above + obese, cooperative and comfortable; no acute distress and not ill appearing Respiratory: normal respiratory effort, lungs clear to auscultation Cardiovascular: RRR, no murmur, no edema Gastrointestinal (Abdomen): Inspection/Auscultation: abdomen normal to inspection, + abdominal wall ecchymosis (surrounding incision sites), + abdominal surgical incision (c/d/i with dermabond), + abdominal surgical drain present (serosanguineous) and + hypoactive bowel sounds; abdomen not distended and + abnormal bowel sounds Percussion/Palpation: + abdomen tender (RLQ and Right mid /flank area) and abdomen soft; no guarding and abdomen not rigid Skin: no rashes, warm and dry Psychiatric: A+Ox3, euthymic affect Results & Data Vital Signs (Past 12 Hours) Vital Signs Temp Pulse Resp BP Pulse Ox O2 Del Method 01/31/24 06:57 36.9 C 110 H 16 122/74 91 Room Air Laboratory Results 01/31/24 01/30/24 Range/Units 07:21 09:43 WBC 10.86 H 12.65 H (4.8-10.8) K/ul RBC 3.86 L 4.01 L (4.20-5.40) M/uL Hgb 13.0 13.2 (12.0-16.0) g/dl Hct 37.3 39.7 (37.0-47.0) % MCV 96.6 99.0 (80.0-100.0) fL MCH 33.7 32.9 (25.0-34.0) pg MCHC 34.9 33.2 (32.0-36.0) g/dL RDW Std Deviation 48.5 H 50.0 H (36.4-46.3) fL RDW Coeff of Sondra 13.5 13.6 (11.5-14.5) % Plt Count 188 177 (130-400) K/uL MPV 10.8 10.3 (9.4-12.4) fL Immature Gran % (Auto) 0.4 0.6 % Neut % (Auto) 77.2 81.5 % Lymph % (Auto) 12.1 11.8 % [place] % (Auto) 7.9 4.5 % Eos % (Auto) 2.1 1.2 % Baso % (Auto) 0.3 0.4 % Neut # (Auto) 8.39 H 10.31 H (1.40-6.50) K/uL Lymph # (Auto) 1.31 1.49 (1.20-3.40) K/uL [place] # (Auto) 0.86 H 0.57 (0.11-0.59) K/uL Eos # (Auto) 0.23 0.15 (0.00-0.50) K/uL Baso # (Auto) 0.03 0.05 (0.00-0.20) K/uL Immature Gran # (Auto) 0.04 0.08 (0.01-0.20) K/uL
[2024-01-31] MEDS: LORazepam 0.5 MG TAB PO PRN (09:23)
[2024-01-31] MEDS: diphenhydrAMINE Capsule 25 MG CAP PO PRN (15:57)
[2024-02-01 07:08] VITALS: BP 125/86; PULSE 85; RESP 16; TEMP 97.9; O2SAT 94
--- NOTE | 2024-02-01 11:55 | Discharge Summary ---
Date of Service February 01, 2024 Admission HPI Per Admitting Provider Amarilis is a 38 yo female with history of anxiety who presents to emergency department with increasing abdominal pain now mostly in right lower abdomen with associated chills and vomiting. States she was not feeling well and then had multiple episodes of bilious vomiting and then pain started last evening around 7 pm. Was more upper right abdomen and now mostly in right lower abdomen. No fevers. No changes in bowel habits. History of tubal ligation and ablation. No blood thinning agents. Principal Diagnosis Acute perforated appendicitis Discharge Exam Constitutional WD/WN, vitals as above cooperative and comfortable; no acute distress and not ill appearing Gastrointestinal (Abdomen) Inspection/Auscultation: abdomen normal to inspection, + abdominal wall ecchymosis (at lap incision sites), + abdominal surgical incision (c/d/i with dermabond) and + abdominal surgical drain present (serosangunieous); abdomen not distended Percussion/Palpation: + abdomen tender (RLQ and right mid abdomen) and abdomen soft; no guarding, abdomen not rigid and abdomen not firm Skin no rashes, warm and dry Psychiatric A+Ox3, euthymic affect Discharge Data Allergies Allergy/AdvReac Type Severity Reaction Status Date / Time No Known Allergies Allergy Unverified 01/28/24 16:29 Procedures Performed Operation Date: 01/28/24 12:30 Actual Procedures p Laparoscopic Appendectomy(Not Applicable) - Darin Reyes MD Ordered Studies 01/28/24 13:21 CT abd pelvis IV con only Stat Hospital Course (1) Appendicitis with perforation: Patient was found to have acute appendicitis with foci of gas outside of the appendix consistent with perforation however there is no abscess seen on CT scan proceeded to go to the operating room for laparoscopic appendectomy. Patient tolerated procedure well and was transferred to medical surgical floor for postoperative care with a MATTHIAS drain and IV antibiotics. Diet was slowly advanced as tolerated, activity as tolerated. She did have a fever postop noted postoperatively however this was controlled with Tylenol. Her leukocytosis improved from 19,000-12,000 then 10,000. Her diet was advanced to regular diet on postop day #3 and MATTHIAS drain was removed on postop day #4 prior to discharge. Overall hospital course was uneventful. She was discharged home on 10 days of Augmentin. Total Time Total Time Spent Total Time Spent (In Minutes): 30 minutes Total Time Includes: Examination of the Patient, Discharge Planning and Medication Reconciliation Discharge Plan Discharge Items Patient Disposition: Home - Self-Care Reason For Visit: PERFORATED APPENDCITIS Discharge Diagnosis: Perforated appendicitis Activity: Per Instructions section Non-emergency contact: Primary Care Provider and Surgeon Call non-emergency contact if: you have any medication questions, your pain is not controlled, your pain is unusual for you, your pain is concerning for you, you have a fever, your wound has increased redness, your wound has increased drainage and your wound pain has increased Follow-up/Referrals: Marcos Pruett CRNP [Primary Care Provider] - Anusha Boyd PA-C [Physician Investment Associate] - 02/07/24 9:30 am (This appointment is at [facility]. Please arrive 15 min early.) Diet: Regular Addtl Attending Provider Instructions: Post-Surgical ~Discharge Instructions Activity Recommendations: - lifting limitation: (20 pounds for 3-4 weeks), - exercise/sex/sports limit: (nonstrenuous for 2 weeks), - driving or machine use limit: (none for 1 week or until pain free and no longer taking narcotic pain medication), - Shower/bathe limit: (may shower ) Diet: - Resume previous diet SPECIAL CARE INSTRUCTIONS: - May shower. Let water run over area and pat dry. - Leave surgical glue on incisions. This will fall off on its own. - If surgical drain was removed before discharge , the area will heal form inside out. Keep are covered with gauze and change daily and as needed to keep clean and dry. - Call the surgeon's office with any questions or concerns - - (ex. temperature higher than 101 degrees F, excessive bleeding or pain). MEDICATIONS: - Resume previous medications unless instructed otherwise by your surgeon. - May alternate extra strength Tylenol and Ibuprofen as needed for mild to moderate pain -650 mg Tylenol every 6 hours as needed - Ibuprofen 600 mg every 6 hours as needed (take with food) - Percocet 1 every 6 hours, as needed for moderate to severe pain - Recommend daily stool softener (Colace) while taking narcotic pain medication to prevent constipation or straining. Drink plenty of water daily. - Take entire course of antibiotics as prescribed. FOLLOW UP VISIT: - If not already scheduled, please call the office to schedule a two week follow-up appointment. Office number Pending Studies at Discharge: No Stand-Alone Forms: [facility] - Opioid Pain Management, Smoking Cessation Medications and DC Order Prescriptions: New oxycodone-acetaminophen 5-325 mg tablet 1 tab PO Q6H PRN (Reason: pain) Qty: 10 0RF amoxicillin-pot clavulanate 875-125 mg tablet 1 tab PO BID Qty: 20 0RF Continued lorazepam 0.5 mg tablet 0.5 mg PO DAILY PRN (Reason: Anxiety) Rx Instructions: ONCE DAILY PRN desvenlafaxine succinate 100 mg tablet extended release 24 hr 100 mg PO DAILY Discharge Orders: Discharge Order (Routine); Ordered 02/01/24 Ordered By: Anusha Muhammad/Other Patient Handouts: DVT Post Op Prevention Admission Data Admit Date/Time: 01/28/24 18:15 Attending Provider: Darin Reyes Admit Provider: Darin Reyes Primary Care Provider: Marcos Pruett Other Interventions: Discharge Summary Assessment (RN) Last Done: 02/01/24 12:40
== END 2024-02-01 13:29 | disposition home or self-care (01) | DRG 399 ==
LOC: ED 12:55 → 3N 18:15